=== PATIENT | female | born 1990 | race Caucasian/White ===

== ENCOUNTER → 2016-11-10 | Outpatient (CLI) | payer OTHER ==
[~2016-11-10] MED LIST: FERR-31 PO; NITR-58 PO; PREN1TAB62 PO
== END | disposition home or self-care (01) ==
LOC: EEG 09:26
PROVIDERS: ATTEND Family Medicine Adult Medicine
DX: G40.909 Epilepsy, unspecified, not intractable, without status epilepticus (principal)
CPT/HCPCS: 95819

== ENCOUNTER 2016-12-19 08:22 | Emergency (ER) | payer OTHER ==
[~2016-12-19] VITALS: Ht 167.6 cm; Wt 78.6 kg
[~2016-12-19 08:22] MED LIST changes: +FOLI-49 PO; +PREN-39 PO
[2016-12-19 08:25] VITALS: Ht 167.6 cm; Wt 78.6 kg
[2016-12-19] MEDS ORDERED: SOD CHLORIDE 0.9% 1,000 ML IV STA (09:02)
[2016-12-19] MEDS ORDERED: KETOROLAC 30 MG INJ IV STA (09:02)
[2016-12-19 09:49] LABS: ADD SCAN DIFF NO
[2016-12-19 09:53] LABS: BASOPHILS % 0.2 % (0.0-2.0); EOSINOPHILS # 0.1 10^3/ul (0.0-0.5); EOSINOPHILS % 2.8 % (0.0-7.0); HEMOGLOBIN 12.5 g/dl (12.0-16.0); LYMPHOCYTES # 1.1 10^3/ul (0.8-2.9); LYMPHOCYTES % 21.3 % (15.0-51.0); MEAN CORPUSCULAR HEMOGLOBIN 30.5 pg (29.0-33.0); MEAN CORPUSCULAR HGB CONC 32.9 g/dl (32.0-37.0); MEAN CORPUSCULAR VOLUME 92.7 fl (82.0-101.0); MEAN PLATELET VOLUME 11.8 fl (7.4-10.4); MONOCYTE # 0.5 10^3/ul (0.3-0.9); MONOCYTES % 9.9 % (0.0-11.0); NEUTROPHIL # 3.2 10^3/ul (1.6-7.5); NEUTROPHILS % 65.4 % (39.0-77.0); PLATELET COUNT 267 10^3/UL (140-415); RED CELL DISTRIBUTION WIDTH 12.2 % (11.5-14.5); WHITE BLOOD COUNT 4.9 10^3/ul (4.8-10.8)
[2016-12-19 09:55] LABS: ADD UMIC YES; UR BILIRUBIN (Dip) NEGATIVE (NEGATIVE); UR BLOOD (Dip) 2+ (NEGATIVE); UR CLARITY CLEAR (CLEAR); UR COLOR LT. YELLOW (YELLOW); UR GLUCOSE (Dip) NEGATIVE (NEGATIVE); UR KETONES (Dip) NEGATIVE (NEGATIVE); UR LEUKOCYTE ESTERASE (Dip) TRACE (NEGATIVE); UR NITRITE (Dip) NEGATIVE (NEGATIVE); UR TOTAL PROTEIN (Dip) NEGATIVE (NEGATIVE); UR UROBILINOGEN (Dip) 0.2 E.U./dL (0.1-1.0)
[2016-12-19 10:04] LABS: INR 1.06; PROTIME 13.8 Sec (12.2-14.2); PT RATIO 1.1
[2016-12-19 10:05] LABS: PARTIAL THROMBOPLASTIN TIME 29.5 Sec (25.0-35.0)
[2016-12-19 10:12] LABS: ALBUMIN 4.3 g/dl (3.3-4.9); ALBUMIN/GLOBULIN RATIO 1.3; BILIRUBIN,INDIRECT 0.1 mg/dl (0-1.1); BILIRUBIN,TOTAL 0.1 mg/dl (0.2-1.3); CALCIUM 8.9 mg/dl (8.4-10.2); CREATININE 0.7 mg/dl (0.44-1.00); TOTAL PROTEIN 7.6 g/dl (6.1-8.1)
--- NOTE | 2016-12-19 10:15 | RADRPT ---
PROCEDURE: US Abdomen. CLINICAL INDICATION: abdominal pain TECHNIQUE: Multiple real-time images were acquired of the patient's right upper quadrant abdomen a nd retroperitoneum utilizing a high resolution transducer. COMPARISON: None FINDINGS: The liver demonstrates normal echogenicity. The liver is normal in size and no focal solid lesions are seen. The liver measures 13.7 cm in length. The portal vein is patent with normal direction of f low. No intrahepatic biliary dilatation is seen. No gallstones are identified within the gallbladder. There is no pericholecystic fluid or gallbladd er wall thickening. The common bile duct measures 5 mm in maximal dimension. The visualized portions of the pancreas are unremarkable. The tail of the pancreas is not seen. No free fluid is identified. The right kidney is normal in size, and demonstrate normal echogenicity and cortical thickness. The right kidney measures 9.7 cm in long dimension. There is no evidence of hydronephrosis. There are no kidney stones. RPTAT: AA IMPRESSION: Unremarkable right upper quadrant abdominal ultrasound. .Néstor Carrasquillo MD, Date Time Electronically viewed and signed by .Néstor Carrasquillo MD, MD on 12/19/2016 10:14 .S/
[2016-12-19 10:21] LABS: UR BACTERIA FEW; UR SQUAMOUS EPITHELIAL CELL FEW
[2016-12-19 11:23] VITALS: BP 111/65; PULSE 76; RESP 18; TEMP 97.9
--- NOTE | 2016-12-19 13:08 | ERD ---
ER Documentation Chief Complaint Date/Time DATE: 12/19/16 TIME: 13:04 Chief Complaint AP WITH DIARRHEA X 2 DAYS HPI This patient is a 26-year-old female with no significant medical history presenting to the emergency department for diffuse abdominal pain with diarrhea ongoing for the past 3 days. The patient states she had 4 episodes of diarrhea in the past 8 hours. There is no blood or mucus in the diarrhea. Additionally the patient reports mild burning while urinating. The patient has been eating and drinking okay with no anorexia. Patient denies fevers, chills, nausea, vomiting, or other symptoms. ROS All systems reviewed and are negative except as per history of present illness. Medications Home Meds Active Scripts Nitrofurantoin Monohyd Macrocr* (Macrobid*) 100 Mg Capsr, 100 MG PO BID for 7 Days, CAP Prov:MARLO ABREU PA-C 06/30/16 Reported Medications Ferrous Sulfate (Iron Supplement) 1 Tab Tablet, 1 TAB PO DAILY 05/20/14 Vit-Iron Fumarate-FA ( Vitamin Tablet) 1 Each Tablet, 1 TAB PO DAILY, TAB 05/20/14 Allergies Allergies: Coded Allergies: Sulfa (Sulfonamide Antibiotics) (Verified Allergy, Unknown, HIVES, 12/19/16 ) PMhx/Soc Medical and Surgical Hx: pt denies Medical Hx, pt denies Surgical Hx History of Surgery: No Anesthesia Reaction: No Hx Neurological Disorder: No Hx Respiratory Disorders: No Hx Cardiac Disorders: No Hx Psychiatric Problems: No Hx Miscellaneous Medical Probl: Yes (HERNIA) Hx Alcohol Use: No Hx Substance Use: No Hx Tobacco Use: No Smoking Status: Never smoker FmHx Noncontributory for chief complaint Physical Exam Vitals Vital Signs Date Time Temp Pulse Resp B/P Pulse Ox O2 Delivery O2 Flow Rate FiO2 12/19/16 11:23 97.9 76 18 111/65 100 Room Air 12/19/16 08:25 97.8 90 18 120/65 99 Physical Exam Const: The patient is resting comfortably in no acute distress. Head: Atraumatic Eyes: Normal Conjunctiva ENT: Normal External Ears, Nose and Mouth. Neck: Full range of motion..~ No meningismus. Resp: Clear to auscultation bilaterally Cardio: Regular rate and rhythm, no murmurs Abd: Soft, there is some mild tenderness to palpation of the right upper quadrant without rebound tenderness or guarding, non distended. Normal bowel sounds. No McBurney's point tenderness. Skin: No petechiae or rashes Back: No midline or flank tenderness Ext: No cyanosis, or edema Neur: Awake and alert Psych: Normal Mood and Affect Result Diagram: 12/19/1692912/19/16929 Results 24 hrs Laboratory Tests Test 12/19/16 09:25 12/19/16 09:30 Urine Color LT. YELLOW Urine Clarity CLEAR Urine pH 5.5 Urine Specific [place] >=1.030 Urine Ketones NEGATIVE Urine Nitrite NEGATIVE Urine Bilirubin NEGATIVE Urine Urobilinogen 0.2 E.U./dL Urine Leukocyte Esterase TRACE Urine Microscopic RBC 2-5/HPF Urine Microscopic WBC 0-2/HPF Urine Squamous Epithelial Cells FEW Urine Bacteria FEW Urine Hemoglobin 2+ Urine Glucose NEGATIVE% Urine Total Protein NEGATIVE White Blood Count 4.910^3/ul Red Blood Count 4.1010^6/ul Hemoglobin 12.5g/dl Hematocrit 38.0% Mean Corpuscular Volume 92.7fl Mean Corpuscular Hemoglobin 30.5pg Mean Corpuscular Hemoglobin Concent 32.9g/dl Red Cell Distribution Width 12.2% Platelet Count 94981^3/UL Mean Platelet Volume 11.8fl Neutrophils % 65.4% Lymphocytes % 21.3% Monocytes % 9.9% Eosinophils % 2.8% Basophils % 0.2% Nucleated Red Blood Cells % 0.0/100WBC Neutrophils # 3.210^3/ul Lymphocytes # 1.110^3/ul Monocytes # 0.510^3/ul Eosinophils # 0.110^3/ul Basophils # 0.010^3/ul Nucleated Red Blood Cells # 0.010^3/ul Prothrombin Time 13.8Sec Prothrombin Time Ratio 1.1 INR International Normalized Ratio 1.06 Activated Partial Thromboplast Time 29.5Sec Sodium Level 141mmol/L Potassium Level 4.0mmol/L Chloride Level 105mmol/L Carbon Dioxide Level 26mmol/L Anion Gap 14 Blood Urea Nitrogen 12mg/dl Creatinine 0.70mg/dl Glucose Level 89mg/dl Calcium Level 8.9mg/dl Total Bilirubin 0.1mg/dl Direct Bilirubin 0.00mg/dl Indirect Bilirubin 0.1mg/dl Aspartate Amino Transf (AST/SGOT) 26IU/L Alanine Aminotransferase (ALT/SGPT) 35IU/L Alkaline Phosphatase 69IU/L Total Protein 7.6g/dl Albumin 4.3g/dl Globulin 3.30g/dl Albumin/Globulin Ratio 1.30 Lipase 67U/L Current Medications Medications (Trade) Dose Ordered Sig/Tatiana Route PRN Reason Start Time Stop Time Status Last Admin Dose Admin Sodium Chloride (NS) 1,000 ml @ 1,000 mls/hr Q1H STAT IV 12/19/16 09:02 12/19/16 10:01 DC 12/19/16 09:33 Ketorolac Tromethamine (Toradol) 30 mg ONCE STAT IV 12/19/16 09:02 12/19/16 09:04 DC 12/19/16 09:33 Procedures/MDM EMERGENCY DEPARTMENT COURSE / MEDICAL DECISION MAKING: This is a 26-year-old female who comes to the emergency room secondary to complaints of diffuse abdominal pain with diarrhea. The patient was given IV Toradol in the department. On re-evaluation, the patient was feeling improved. Lab results reviewed and showed no significant acute abnormalities. Radiology: PROCEDURE: US Abdomen. CLINICAL INDICATION: abdominal pain TECHNIQUE: Multiple real-time images were acquired of the patient's right upper quadrant abdomen and retroperitoneum utilizing a high resolution transducer. COMPARISON: None FINDINGS: The liver demonstrates normal echogenicity. The liver is normal in size and no focal solid lesions are seen. The liver measures 13.7 cm in length. The portal vein is patent with normal direction of flow. No intrahepatic biliary dilatation is seen. No gallstones are identified within the gallbladder. There is no pericholecystic fluid or gallbladder wall thickening. The common bile duct measures 5 mm in maximal dimension. The visualized portions of the pancreas are unremarkable. The tail of the pancreas is not seen. No free fluid is identified. The right kidney is normal in size, and demonstrate normal echogenicity and cortical thickness. The right kidney measures 9.7 cm in long dimension. There is no evidence of hydronephrosis. There are no kidney stones. RPTAT: AA IMPRESSION: Unremarkable right upper quadrant abdominal ultrasound. .Néstor Carrasquillo MD, MD Date Time Electronically viewed and signed by .Néstor Carrasquillo MD, MD on 12/19/2016 10: 14 .S/ CC: YAQUELIN GENAO PA-C The primary diagnosis is abdominal pain of unclear etiology. Secondary diagnosis is diarrhea I have low suspicion for appendicitis, cholecystitis, bowel obstruction, peritoneal abscess, septicemia, or other emergent conditions at this time. Discharge: I have discussed the lab results and diagnostic findings with the patient and answered any questions or concerns. The patient was advised to followup with their PMD in 1-2 days and to return to the Emergency Department if there are any new or worsening symptoms. The patient understood and agreed with the diagnosis, treatment and plan. The patient is stable for discharge at this time. Departure Diagnosis: Primary Impression: Abdominal pain Additional Impression: Diarrhea Condition: Fair Patient Instructions: Abdominal Pain, Treating Diarrhea Referrals: [facility] YOU HAVE RECEIVED A MEDICAL SCREENING EXAM AND THE RESULTS INDICATE THAT YOU DO NOT HAVE A CONDITION THAT REQUIRES URGENT TREATMENT IN THE EMERGENCY DEPARTMENT. FURTHER EVALUATION AND TREATMENT OF YOUR CONDITION CAN WAIT UNTIL YOU ARE SEEN IN YOUR DOCTORS OFFICE WITHIN THE NEXT 1-2 DAYS. IT IS YOUR RESPONSIBILITY TO MAKE AN APPOINTMENT FOR FOLOW-UP CARE. IF YOU HAVE A PRIMARY DOCTOR --you should call your primary doctor and schedule an appointment IF YOU DO NOT HAVE A PRIMARY DOCTOR YOU CAN CALL OUR PHYSICIAN REFERRAL HOTLINE AT IF YOU CAN NOT AFFORD TO SEE A PHYSICIAN YOU CAN CHOSE FROM THE FOLLOWING [facility] [address] [facility] [address] [facility] [address] [facility]. [facility] [address] [facility]. [facility] [address] [facility]. [facility]. [address] Additional Instructions: Please utilize the brat diet. Follow-up with your primary care physician within 1 week. Return to the emergency department immediately should you have any new or worsening symptoms, uncontrolled fevers, or other unexplained symptoms. Take all medications as directed. YAQUELIN GENAO PA-C Dec 19, 2016 13:08
== END 2016-12-19 11:25 | disposition home or self-care (01) ==
LOC: FTE 08:22
DX: R10.11 Right upper quadrant pain (principal); R19.7 Diarrhea, unspecified
CPT/HCPCS: 76705; 80053; 81001; 83690; 85025; 85610; 85730; J1885; J7030; 36415; 81003; 96361; 96374

== ENCOUNTER 2017-05-26 02:09 | Inpatient (IN) | payer OTHER ==
[~2017-05-26] VITALS: Ht 167.6 cm; Wt 90.1 kg
[~2017-05-26 02:09] MED LIST changes: -FOLI-49 PO; -PREN-39 PO
--- NOTE | 2017-05-26 02:24 | ERA ---
ER Documentation Chief Complaint Date/Time DATE: 05/26/17 TIME: 02:24 Chief Complaint c/o abd pain HPI The patient is a 26-year-old female, presenting with diffuse abdominal pain that began about 12:30 AM. She denies fever, chills, neck pain, chest pain, dyspnea, nausea, vomiting, dysuria, diarrhea. She does not smoke or drink Past medical history: Cardiac valvular problem, details unclear Past surgical history: None ROS All systems reviewed and are negative except as per history of present illness. Medications Home Meds Reported Medications Aspirin* (Aspirin* EC) 81 Mg Tablet.dr, 81 MG PO DAILY, TAB 05/26/17 Nitroglycerin* (Nitrostat*) 0.4 Mg Tab.subl, 0.4 MG SL Q5MIN Y for CHEST PAIN, BOTTLE 05/26/17 Discontinued Reported Medications Ferrous Sulfate (Iron Supplement) 1 Tab Tablet, 1 TAB PO DAILY 05/20/14 Vit-Iron Fumarate-FA ( Vitamin Tablet) 1 Each Tablet, 1 TAB PO DAILY, TAB 05/20/14 Discontinued Scripts Nitrofurantoin Monohyd Macrocr* (Macrobid*) 100 Mg Capsr, 100 MG PO BID for 7 Days, CAP Prov:MARLO ABREU PA-C 06/30/16 Allergies Allergies: Coded Allergies: Sulfa (Sulfonamide Antibiotics) (Unverified Allergy, Unknown, HIVES, ) PMhx/Soc History of Surgery: No Anesthesia Reaction: No Hx Neurological Disorder: No Hx Respiratory Disorders: No Hx Cardiac Disorders: No Hx Psychiatric Problems: No Hx Miscellaneous Medical Probl: Yes (HERNIA) Hx Alcohol Use: No Hx Substance Use: No Hx Tobacco Use: No Physical Exam Vitals Vital Signs Date Time Temp Pulse Resp B/P Pulse Ox O2 Delivery O2 Flow Rate FiO2 05/26/17 02:51 91 18 120/75 98 Room Air 05/26/17 02:15 98.6 98 18 120/70 98 Physical Exam Const: No acute distress. Head: Atraumatic. Eyes: Normal Conjunctiva. ENT: Normal External Ears, Nose and Mouth. Neck: Full range of motion. No meningismus. Resp: Clear to auscultation bilaterally. Cardio: Regular rate and rhythm. Abd: Soft, non distended, normal bowel sounds, Diffuse and vague abdominal tenderness, no rigidity, rebound, CVA tenderness Skin: No petechiae or rashes. Back: No midline or flank tenderness. Ext: No cyanosis, or edema. Neur: Awake and alert. No focal deficit Psych: Normal Mood and Affect. Result Diagram: 05/26/17 0243 05/26/17 0243 Results 24 hrs Laboratory Tests Test 05/26/17 02:43 05/26/17 02:54 White Blood Count 19.010^3/ul Red Blood Count 4.3710^6/ul Hemoglobin 13.5g/dl Hematocrit 40.4% Mean Corpuscular Volume 92.4fl Mean Corpuscular Hemoglobin 30.9pg Mean Corpuscular Hemoglobin Concent 33.4g/dl Red Cell Distribution Width 12.0% Platelet Count 73176^3/UL Mean Platelet Volume 11.7fl Neutrophils % 78.9% Lymphocytes % 15.3% Monocytes % 4.5% Eosinophils % 0.8% Basophils % 0.2% Nucleated Red Blood Cells % 0.0/100WBC Neutrophils # 15.010^3/ul Lymphocytes # 2.910^3/ul Monocytes # 0.910^3/ul Eosinophils # 0.210^3/ul Basophils # 0.010^3/ul Nucleated Red Blood Cells # 0.010^3/ul Sodium Level 143mmol/L Potassium Level 3.9mmol/L Chloride Level 106mmol/L Carbon Dioxide Level 25mmol/L Anion Gap 16 Blood Urea Nitrogen 14mg/dl Creatinine 0.92mg/dl Glucose Level 103mg/dl Calcium Level 9.6mg/dl Total Bilirubin 0.1mg/dl Direct Bilirubin 0.00mg/dl Indirect Bilirubin 0.1mg/dl Aspartate Amino Transf (AST/SGOT) 19IU/L Alanine Aminotransferase (ALT/SGPT) 29IU/L Alkaline Phosphatase 85IU/L Total Protein 8.2g/dl Albumin 4.7g/dl Globulin 3.50g/dl Albumin/Globulin Ratio 1.34 Lipase 108U/L Bedside Urine pH (LAB) 6.0 Bedside Urine Protein (LAB) Negative Bedside Urine Glucose (UA) Negative Bedside Urine Ketones (LAB) Negative Bedside Urine Blood Trace-lysed Bedside Urine Nitrite (LAB) Negative Bedside Urine Leukocyte Esterase (L 3+ Current Medications Medications (Trade) Dose Ordered Sig/Tatiana Route PRN Reason Start Time Stop Time Status Last Admin Dose Admin Sodium Chloride (NS) 1,000 ml @ 1,000 mls/hr Q1H STAT IV 05/26/17 02:28 05/26/17 03:27 DC 05/26/17 02:52 Morphine Sulfate (morphine) 2 mg ONCE STAT IV 05/26/17 02:28 05/26/17 02:30 DC 05/26/17 02:52 Ondansetron HCl (Zofran Inj) 4 mg ONCE STAT IV 05/26/17 02:28 05/26/17 02:30 DC 05/26/17 02:52 Procedures/[place] [address] Radiology Main Line: [phone] DIAGNOSTIC IMAGING REPORT Patient: TITO NEW : 1990 Age: 26 Sex: F MR #: [id number] DOS: 05/26/17 0228 Ordering MD: CARMEN ALEMAN MD Location: E/R Room/Bed: PROCEDURE: CT Abdomen and pelvis without contrast. CLINICAL INDICATION: Abdominal pain. TECHNIQUE: CT scan of the abdomen and pelvis was performed on a multi- detector high-resolution CT scanner. Contiguous axial images were obtained from the lung bases to the ischial tuberosities without intravenous contrast. Coronal and sagittal reformatted images were also obtained. Images were reviewed on the PACS workstation. One or more of the following dose reduction techniques were used: - Automated exposure control. - Adjustment of the mA and/or kV according to patient size. - Use of iterative reconstruction technique. Exam CTD/vol = 15.86 mGy. Total exam DLP = 1020.91 mGy-cm. COMPARISON: None. FINDINGS: Evaluation of the lung bases demonstrates minimal right basilar atelectasis. Abdomen: The liver is normal in size. There is no focal mass or dilatation of the biliary tree. The gallbladder is not distended. The spleen, pancreas and bilateral adrenal glands are within normal limits. Bilateral kidneys are normal in size with no contour deforming mass identified. There is no radiopaque renal or ureteral calculus identified. There is no hydronephrosis or hydroureter. There is no retroperitoneal adenopathy. The abdominal aorta is of normal caliber. There is a small umbilical hernia containing fat. There is moderate retained stool within the colon. There is no bowel obstruction or free air. There is a mildly distended appendix extending inferior to the cecum measuring up to 8 mm in diameter. There is no diverticulosis or diverticulitis. There is no ascites. Pelvis: The bladder is unremarkable. The uterus and adnexa are within normal limits. There is mild to moderate pelvic free fluid. There is no significant pelvic adenopathy. Evaluation of the osseous structures demonstrates no suspicious lytic or blastic lesion. IMPRESSION: Mild to moderate pelvic free fluid suspicious for ruptured cyst. Further evaluation can be made by pelvic ultrasound. Mildly distended appendix measuring 8 mm. Clinical correlation and follow-up is recommended to exclude appendicitis. Moderate retained stool within the colon. Small umbilical hernia containing fat. A call report was made to Dr. Aleman at 03:18 a.m. .Raúl Sood MD, MD Date Time Electronically viewed and signed by .Raúl Sood MD, MD on 05/26/2017 03:19 .T/ CC: CARMEN ALEMAN MD [place] [address] Radiology Main Line: [phone] DIAGNOSTIC IMAGING REPORT Patient: TITO NEW : 1990 Age: 26 Sex: F MR #: [id number] DOS: 05/26/17 0329 Ordering MD: CARMEN ALEMAN MD Location: E/R Room/Bed: PROCEDURE: Pelvic ultrasound. CLINICAL INDICATION: Pelvic pain. TECHNIQUE: Multiple sonographic images of the pelvis were obtained utilizing a transabdominal and endovaginal technique. The images were reviewed on a PACS workstation. COMPARISON: None. FINDINGS: The uterus is visualized and measures 8.6 x 3.2 x 5.0 cm. No abnormal uterine mass is identified. The endometrial echo complex is homogeneous and measures 9.9 mm. There is moderate pelvic free fluid. The right ovary has a normal echotexture and measures 4.0 x 2.7 x 2.9 cm. The left ovary has a normal echotexture and measures 2.9 x 1.7 x 2.3 cm. There is normal flow to both ovaries. No adnexal masses are identified. IMPRESSION: Moderate pelvic free fluid. .Raúl Sood MD, MD Date Time Electronically viewed and signed by .Raúl Sood MD, MD on 05/26/2017 04:28 .T/ CC: CARMEN ALEMAN MD MEDICAL MAKING DECISION: The patient is a 26-year-old female, presenting with acute abdominal pain, most likely due to acute cystitis, , moderate pelvic free fluid of unclear etiology. She was treated with 1 L normal saline for clinical dehydration, morphine 2 mg IV, Toradol 30 mg IV 1 for pain and Zofran 4 mg IV 1 for nausea and Rocephin 1 g IV for acute cystitis with good response. The differential diagnoses considered include but are not limited to cholelithiasis, cholecystitis, cystitis, pancreatitis, hepatitis, gastritis, peptic ulcer disease, gastric ulcer, appendicitis, diverticulitis, cholangitis, choledocholithiasis, partial small bowel obstruction. Departure Diagnosis: Primary Impression: Abdominal pain Additional Impression: UTI (urinary tract infection) Condition: Stable Comments I discussed the findings with the patient. I discussed the patient with the on- call hospitalist Dr. Cooper at 4:45 AM who was made aware of the lab, the treatment, the patient condition. The patient is admitted to [facility] CARMEN ALEMAN MD May 26, 2017 02:24
[2017-05-26] MEDS ORDERED: ONDANSETRON 4 MG INJ IV STA (02:28)
[2017-05-26] MEDS ORDERED: morphine 2 MG INJ IV STA (02:28)
[2017-05-26] MEDS ORDERED: SOD CHLORIDE 0.9% 1,000 ML IV STA (02:28)
[2017-05-26 02:47] LABS: URINE BLOOD (Dip) POC Trace-lysed (NEGATIVE)
[2017-05-26 03:01] LABS: BASOPHILS % 0.2 % (0.0-2.0); EOSINOPHILS # 0.2 10^3/ul (0.0-0.5); EOSINOPHILS % 0.8 % (0.0-7.0); HEMATOCRIT 40.4 % (37.0-47.0); HEMOGLOBIN 13.5 g/dl (12.0-16.0); LYMPHOCYTES # 2.9 10^3/ul (0.8-2.9); LYMPHOCYTES % 15.3 % (15.0-51.0); MEAN CORPUSCULAR HEMOGLOBIN 30.9 pg (29.0-33.0); MEAN CORPUSCULAR HGB CONC 33.4 g/dl (32.0-37.0); MEAN CORPUSCULAR VOLUME 92.4 fl (82.0-101.0); MEAN PLATELET VOLUME 11.7 fl (7.4-10.4); MONOCYTE # 0.9 10^3/ul (0.3-0.9); MONOCYTES % 4.5 % (0.0-11.0); NEUTROPHILS % 78.9 % (39.0-77.0); PLATELET COUNT 296 10^3/UL (140-415); RED BLOOD COUNT 4.37 10^6/ul (4.20-5.40)
--- NOTE | 2017-05-26 03:20 | RADRPT ---
PROCEDURE: CT Abdomen and pelvis without contrast. CLINICAL INDICATION: Abdominal pain. TECHNIQUE: CT scan of the abdomen and pelvis was performed on a multi-detector high-resolution CT scanner. Contiguous axial images were obtained from the lung bases to the ischial tuberosities wit hout intravenous contrast. Coronal and sagittal reformatted images were also obtained. Images were reviewed on the PACS workstation. One or more of the following dose reduction techniques were used: - Automated exposure control. - Adjustment of the mA and/or kV according to patient size. - Use of iterative reconstruction technique. Exam CTD/vol = 15.86 mGy. Total exam DLP = 1020.91 mGy-cm. COMPARISON: None. FINDINGS: Evaluation of the lung bases demonstrates minimal right basilar atelectasis. Abdomen: The liver is normal in size. There is no focal mass or dilatation of the biliary tree. T he gallbladder is not distended. The spleen, pancreas and bilateral adrenal glands are within romelia l limits. Bilateral kidneys are normal in size with no contour deforming mass identified. There is no radiopaque renal or ureteral calculus identified. There is no hydronephrosis or hydroureter. T here is no retroperitoneal adenopathy. The abdominal aorta is of normal caliber. There is a small umbilical hernia containing fat. There is moderate retained stool within the colon . There is no bowel obstruction or free air. There is a mildly distended appendix extending inferio r to the cecum measuring up to 8 mm in diameter. There is no diverticulosis or diverticulitis. The re is no ascites. Pelvis: The bladder is unremarkable. The uterus and adnexa are within normal limits. There is mil d to moderate pelvic free fluid. There is no significant pelvic adenopathy. Evaluation of the osseous structures demonstrates no suspicious lytic or blastic lesion. IMPRESSION: Mild to moderate pelvic free fluid suspicious for ruptured cyst. Further evaluation can be made by [facility] ultrasound. Mildly distended appendix measuring 8 mm. Clinical correlation and follow-up is recommended to exclu de appendicitis. Moderate retained stool within the colon. Small umbilical hernia containing fat. A call report was made to Dr. Felipe at 03:18 a.m. .Raúl Sood MD, Date Time Electronically viewed and signed by .Raúl Sood MD, MD on 05/26/2017 03:19 .T/
[2017-05-26] MEDS ORDERED: ASPI-664 PO (03:35)
[2017-05-26] MEDS ORDERED: NIT4 SL (03:35)
[2017-05-26 03:59] LABS: ALBUMIN 4.7 g/dl (3.3-4.9); ALBUMIN/GLOBULIN RATIO 1.34; BILIRUBIN,INDIRECT 0.1 mg/dl (0-1.1); BILIRUBIN,TOTAL 0.1 mg/dl (0.2-1.3); CALCIUM 9.6 mg/dl (8.4-10.2); CREATININE 0.92 mg/dl (0.44-1.00); POTASSIUM 3.9 mmol/L (3.5-5.1); TOTAL PROTEIN 8.2 g/dl (6.1-8.1)
--- NOTE | 2017-05-26 04:29 | RADRPT ---
PROCEDURE: Pelvic ultrasound. CLINICAL INDICATION: Pelvic pain. TECHNIQUE: Multiple sonographic images of the pelvis were obtained utilizing a transabdominal and endovaginal technique. The images were reviewed on a PACS workstation. COMPARISON: None. FINDINGS: The uterus is visualized and measures 8.6 x 3.2 x 5.0 cm. No abnormal uterine mass is identified. T he endometrial echo complex is homogeneous and measures 9.9 mm. There is moderate pelvic free fluid. The right ovary has a normal echotexture and measures 4.0 x 2. 7 x 2.9 cm. The left ovary has a normal echotexture and measures 2.9 x 1.7 x 2.3 cm. There is norm al flow to both ovaries. No adnexal masses are identified. IMPRESSION: Moderate pelvic free fluid. .Raúl Sood MD, MD Date Time Electronically viewed and signed by .Raúl Sood MD, MD on 05/26/2017 04:28 .T/
[2017-05-26] MEDS ORDERED: KETOROLAC 30 MG INJ IV ONE (04:51)
[2017-05-26] MEDS ORDERED: CEFTRIAXONE 1 GM/50 ML (PMX) 50 ML IVPB ONE (05:00)
[2017-05-26] MEDS: SOD CHLORIDE 0.9% 1,000 ML IV SCH ×2 (06:19→20:55)
[2017-05-26] MEDS ORDERED: NACL 0.9% 3 ML SYG IV SCH (06:30)
[2017-05-26] MEDS ORDERED: DOCUSATE SODIUM 100 MG CAP PO PRN (06:30)
[2017-05-26] MEDS ORDERED: KETOROLAC 30 MG INJ IV PRN (06:30)
[2017-05-26] MEDS ORDERED: ONDANSETRON 4 MG INJ IV PRN (06:30)
[2017-05-26] MEDS ORDERED: BISACODYL 10 MG SUPP PR PRN (06:30)
[2017-05-26] MEDS: PIPER-TAZO 3.375 GM IV (PMX) 100 ML IVPB SCH ×4 (06:30→23:56)
[2017-05-26] MEDS ORDERED: ACETAMINOPHEN 325 MG TAB PO PRN (06:30)
--- NOTE | 2017-05-26 07:23 | HP ---
Date/Time of Note Date/Time of Note DATE: 05/26/17 TIME: 07:13 Assessment/Plan VTE Prophylaxis VTE Prophylaxis Intervention: SCD's Assessment/Plan Chief Complaint/Hosp Course This is a 26 year female being [facility] for: #1 abdominal pain: Appendicitis versus UTI versus pelvic etiology versus constipation: CAT scan showed Mild to moderate pelvic free fluid suspicious for ruptured cyst. Mildly distended appendix measuring 8 mm. Clinical correlation and follow-up is recommended to exclude appendicitis. Moderate retained stool within the colon. Small umbilical hernia containing fat. Ultrasound of the pelvis showed free fluid however did not show any signs of any ovarian rupture. At the current time patient's pain is not very consistent with just an underlying urinary tract infection. I will start her on Zosyn she did receive ceftriaxone already in the ED. I will keep her n.p.o. Will consult surgery to evaluate the patient as well. Toradol IV for pain control #2 prediabetes: We will check a hemoglobin A1c, will check a lipid panel #3 abnormal heart valve: Was not able to appreciate any overt murmurs on auscultation. Patient follows up with consumer insights specialist diana, she she can follow- up as an outpatient. #4 DVT GI prophylaxis: SCDs, acid nicol Further treatment strategy will be implemented as per the clinical course Problems: HPI/ROS Admit Date/Time Admit Date/Time Hx of Present Illness Chief complaint: Abdominal pain This is a 26 year female who comes in complaining of abdominal pain that started approximately at 12 AM. Patient states that she was sleeping and all of a sudden she experienced a sharp pain in her lower abdomen which awoke her up from her sleep. She states that she was in the position writhing in pain. Had some nausea. Denies any fevers or vomiting. Denies any diarrhea. She states that she is experiencing urinary tract infections before but they have not felt like this. She states that her last period was approximately 2-3 weeks ago and she is due for it sometime soon. Denies any vaginal bleeding or hematuria. Denies any problems with defecation. Allergies: Sulfa Medications: See ISABEL ROS Const: As per HPI Eyes : No pain discharge or redness or change in visual acuity ENT: No pain, sore throat, congestion, congestion, dysphagia or discharge Respiratory: No shortness of breath, cough, sputum, wheezing, or pleuritic pain Cardiovascular: No chest pain, palpitation, PND, or edema GI : As per HPI Genitourinary: No dysuria, hematuria, flank pain , discharge or CVA tenderness Musculoskeletal: No joint pain, back pain, neck pain, restricted range of motion in neck or joints Skin: No rash, bruising or hives Neuro: No headache, dizziness, syncope, seizure, focal weakness Endocrine: No polyuria, polydipsia, temperature intolerance Psych: No hallucination, depression, anxiety or suicidal ideation PMH/Family/Social Past Medical History Prediabetes, abnormal heart valve unsure which one Past Surgical History Past Surgical Hx: no surgical history Family History Significant Family History: cancer (Cervical cancer) Social History Alcohol Use: none Smoking Status: Never smoker Drug Use: none Exam/Review of Systems Vital Signs Vitals Vital Signs Date Time Temp Pulse Resp B/P Pulse Ox O2 Delivery O2 Flow Rate FiO2 05/26/17 05:02 85 18 116/75 98 Room Air 05/26/17 02:15 98.6 Exam Exam General: Patient is lying in bed in no acute distress, however on exam when abdomen is palpated and she has significant pain HEENT: Atraumatic, normocephalic. The pupils are equal, round and reactive. Extraocular motor are intact Neck: Supple with full range of motion. No rigidity or meningismus Chest: Nontender Lungs: Clear to auscultation bilaterally no crackles rales or wheezing Heart: Normal S1-S2, Regular rhythm and rate. No murmur, S3, or S4 Abdomen: Moderate tenderness to palpation of the right lower quadrant as well as at the umbilical region. Referred pain on the left lower quadrant Extremities: Normal to inspection, no edema no cyanosis Neurologic: Normal mental status, speech normal, cranial nerves II through XII are intact, motor and sensory are intact, no focal weakness Additional Comments PROCEDURE: CT Abdomen and pelvis without contrast. CLINICAL INDICATION: Abdominal pain. TECHNIQUE: CT scan of the abdomen and pelvis was performed on a multi- detector high-resolution CT scanner. Contiguous axial images were obtained from the lung bases to the ischial tuberosities without intravenous contrast. Coronal and sagittal reformatted images were also obtained. Images were reviewed on the PACS workstation. One or more of the following dose reduction techniques were used: - Automated exposure control. - Adjustment of the mA and/or kV according to patient size. - Use of iterative reconstruction technique. Exam CTD/vol = 15.86 mGy. Total exam DLP = 1020.91 mGy-cm. COMPARISON: None. FINDINGS: Evaluation of the lung bases demonstrates minimal right basilar atelectasis. Abdomen: The liver is normal in size. There is no focal mass or dilatation of the biliary tree. The gallbladder is not distended. The spleen, pancreas and bilateral adrenal glands are within normal limits. Bilateral kidneys are normal in size with no contour deforming mass identified. There is no radiopaque renal or ureteral calculus identified. There is no hydronephrosis or hydroureter. There is no retroperitoneal adenopathy. The abdominal aorta is of normal caliber. There is a small umbilical hernia containing fat. There is moderate retained stool within the colon. There is no bowel obstruction or free air. There is a mildly distended appendix extending inferior to the cecum measuring up to 8 mm in diameter. There is no diverticulosis or diverticulitis. There is no ascites. Pelvis: The bladder is unremarkable. The uterus and adnexa are within normal limits. There is mild to moderate pelvic free fluid. There is no significant pelvic adenopathy. Evaluation of the osseous structures demonstrates no suspicious lytic or blastic lesion. IMPRESSION: Mild to moderate pelvic free fluid suspicious for ruptured cyst. Further evaluation can be made by pelvic ultrasound. Mildly distended appendix measuring 8 mm. Clinical correlation and follow-up is recommended to exclude appendicitis. Moderate retained stool within the colon. Small umbilical hernia containing fat. A call report was made to Dr. Aleman at 03:18 a.m. .Raúl Sood MD, MD Date Time Electronically viewed and signed by .Raúl Sood MD, MD on 05/26/2017 03:19 .T/ CC: CARMEN ALEMAN MD PROCEDURE: Pelvic ultrasound. CLINICAL INDICATION: Pelvic pain. TECHNIQUE: Multiple sonographic images of the pelvis were obtained utilizing a transabdominal and endovaginal technique. The images were reviewed on a PACS workstation. COMPARISON: None. FINDINGS: The uterus is visualized and measures 8.6 x 3.2 x 5.0 cm. No abnormal uterine mass is identified. The endometrial echo complex is homogeneous and measures 9.9 mm. There is moderate pelvic free fluid. The right ovary has a normal echotexture and measures 4.0 x 2.7 x 2.9 cm. The left ovary has a normal echotexture and measures 2.9 x 1.7 x 2.3 cm. There is normal flow to both ovaries. No adnexal masses are identified. IMPRESSION: Moderate pelvic free fluid. .Raúl Sood MD, Date Time Electronically viewed and signed by .Raúl Sood MD, on 05/26/2017 04:28 .T/ CC: CARMEN ALEMAN MD Labs Result Diagram: 05/26/17 0243 05/26/17 0243 Medications Medications Current Medications Sodium Chloride (NS) 1,000 ml @ 75 mls/hr [id number] IV ; Start 05/26/17 at 06:19 Ondansetron HCl (Zofran Inj) 4 mg Q6H PRN IV NAUSEA AND/OR VOMITING; Start at 06:30 Acetaminophen (Tylenol Tab) 650 mg Q6H PRN PO PAIN LEVEL 1-3 OR FEVER; Start at 06:30 Docusate Sodium (Colace) 100 mg Q12H PRN PO CONSTIPATION; Start 05/26/17 at 06: 30 Bisacodyl (Dulcolax Supp) 10 mg DAILY PRN [place] CONSTIPATION; Start 05/26/17 at 06 :30 Pantoprazole 40 mg 40 mg DAILY@06 IV ; Start 05/27/17 at 06:00 Piperacillin Sod/ Tazobactam Sod (Zosyn 3.375gm/ 100 ml (Pmx)) 100 ml @ 200 mls /hr Q6 IVPB ; Start 05/26/17 at 06:30 Ketorolac Tromethamine (Toradol) 30 mg Q6H PRN IV PAIN; Start 05/26/17 at 06:30 ; Stop 05/27/17 at 06:29 HAIR KING May 26, 2017 07:23
[2017-05-26] MEDS ORDERED: PANTOPRAZOLE 40 MG INJ ONE (08:28)
[2017-05-26] MEDS: PANTOPRAZOLE 40 MG INJ IV SCH (08:42)
[2017-05-26] MEDS: morphine 2 MG INJ IV PRN ×2 (10:32→15:56)
[2017-05-26] MEDS ORDERED: FLUO40CA10 PO (12:33)
[2017-05-26] MEDS ORDERED: PROP40TA4 PO (12:33)
[2017-05-26 13:57] VITALS: TEMP 97.2
[2017-05-26 15:33] VITALS: BP 102/59; RESP 18
[2017-05-26] MEDS ORDERED: PROP10TA6 PO (16:29)
--- NOTE | 2017-05-26 18:00 | CONS ---
Date/Time of Note Date/Time of Note DATE: 05/26/17 TIME: 17:59 Assessment/Plan Assessment/Plan Additional Assessment/Plan [facility] INPATIENT CONSULTATION NOTE DATE OF SERVICE: 05/26/2017 PLACE OF SERVICE: [facility], sixth floor ASSESSMENT AND PLAN: A very-pleasant 26-year-old lady with comorbidity of BMI 29.2, presenting with a clinical picture that is not clear for acute appendicitis. Her pain description and location is more diffuse and involves mid upper abdomen which could be from ulcer disease or gastritis. She is less tender in the right lower quadrant than other places and she overall does not present as clear the picture for appendicitis. CT scan also suggests equivocal findings for appendicitis at best. Fluid in the pelvis is present and could also be from gynecologic issues. Overall, I do not have enough indication for acute surgical intervention, but I have reserved time in the operating room tomorrow and if the patient does not improve, we can certainly change our stance and operate on her. In the meantime, she can stay in house and be observed carefully with broad-spectrum antimicrobials and observation. Explained above to the patient (no family present during my discussions with the patient) and answered all questions to the best my ability. Patient appeared to understand and agreed with plans. With above assessment, I've recommended the followin. Keep in-house 2. Okay from my standpoint for patient to eat, but n.p.o. after midnight 3. Labs in a.m. 4. Please keep me appraised as to the patient's clinical condition 5. Possible need for gastroenterology consultation if not improved by tomorrow Thank you very much for having me involved in the care of this very pleasant patient and wonderful family. If you have any questions, please feel free to contact me at [phone]. Nature of presenting problem: Moderate severity Please note that, given the multiple number of diagnoses or management options, the moderate amount and/or complexity of data needed to be reviewed, and moderate to high risk of complications and/or morbidity or mortality, this qualifies as moderate complexity type of decision-making. Disclaimers: 1. Inadvertent spelling and grammatical errors are likely due to electronic health record (EHR)/dictation software use and do not reflect on the quality of delivered patient care. 2. The electronic timestamp recorded on this note does not necessarily reflect the actual date and time of the visit. 3. Portions of this note are created through electronic templates and computer algorithms that may bring in information either from the system or from other physicians and providers that are outside of my control and may not be always accurate. In general (but not always) this happens either in the beginning or at the end of the note. My portions of the gathered data are generally dictated in 1 continuous block of text and entered into one field in the EHR. 4. There may be other unanticipated errors in the note that are outside of my control. I can only attest to the portions of the note that I have created. Updated clinical summary: A very-pleasant 26-year-old lady with comorbidity of BMI 29.2, presenting with a clinical picture that is not clear for acute appendicitis. Comorbidities: 1. BMI 29.2 2. Allergy to sulfa 3. Umbilical hernia 4. Mention of abnormal heart valve in the chart, but no further details available CONSULTATION REQUESTED BY: Mickey Cooper MD Dear Dr. Cooper: Thank you very much for the opportunity to participate in the care of this very pleasant lady and I'm certain her wonderful family. HISTORY OF PRESENT ILLNESS: The patient is a very pleasant 26-year-old lady who is otherwise healthy with above-mentioned comorbidities whom we were kindly asked consult regarding management of abdominal pain issues. Patient was admitted through the emergency department after presenting with 1 day history of abdominal pain that woke her up from sleep. This pain was diffuse in the abdomen and was described to me by the patient as mid upper epigastric with radiation to the size. Interestingly, the patient did not mention right lower quadrant pain during her description. There was issues with nausea, but no fevers or vomiting. No change in bowel or bladder habits. No difficulties with gynecologic issues in the past. No similar pain symptoms in the past. No burning or itching on urination. ALLERGIES: Sulfa MEDICATIONS Documented in the electronic records and reviewed by me. Please see the electronic records for details, as well as details for inpatient medications which were also reviewed by me. SOCIAL HISTORY: The patient lives with family.-Tob;-ETOH;-IVDU FAMILY HISTORY: Cervical cancer without further delineation. There are no other significant medical, surgical or oncologic issues in the family as reported by the patient or reflected in the chart. REVIEW OF SYSTEMS: Other than mentioned above, there were no other pertinent positives or pertinent negatives in an otherwise complete 14 point review of systems. PHYSICAL EXAMINATION GENERAL: The patient appears to be a very pleasant lady of descent lying in bed, appearing stated age, and otherwise in no acute distress. BMI: 29.2 VITAL SIGNS: AVSS (please also see auto important data if available as well as the electronic records) HEENT: Normocephalic and atraumatic. Extraocular muscles and hearing are grossly intact bilaterally and symmetrically. Sclerae are nonicteric. Oral cavity is clear; oral mucosa appear to be pink and moist. Dentition: fair. NECK: Supple. There is no lymphadenopathy or JVD. There is no submental, submandibular or supraclavicular lymphadenopathy. CHEST: Rises symmetrically with each breath; patient is breathing comfortably. There are no audible wheezes, rales or rhonchi on the gross exam. HEART: Pulse is regular and palpable on the right wrist. Capillary refill is normal. Carotid pulses are palpable bilaterally and symmetrically in the neck. EXTREMITIES: Lower extremities contain no pitting edema around the ankles bilaterally and symmetrically. ABDOMEN: Abdomen is soft, nontender and nondistended. No evidence of ascites, organomegaly, caput medusae, engorged subcutaneous veins, or other abnormalities. There are no peritoneal signs or guarding. SKIN: Appears to be pink and feels warm to touch. NEUROLOGIC: Awake, alert, and follows commands appropriately. LABORATORY DATA: See below IMAGING: See electronic chart. Please note that I've personally reviewed all pertinent available images and I agree in general with their overall reported findings. Consultation Date/Type/Reason Admit Date/Time Past Surgical History Past Surgical Hx: no surgical history Social History Alcohol Use: none Smoking Status: Never smoker Drug Use: none Exam/Review of Systems Vital Signs Vitals Vital Signs Date Time Temp Pulse Resp B/P Pulse Ox O2 Delivery O2 Flow Rate FiO2 05/26/17 15:33 97.7 73 18 102/59 99 05/26/17 13:57 Room Air Results Result Diagram: 05/26/17 0243 05/26/17242 Results 24 hrs Laboratory Tests Test 05/26/17 02:43 05/26/17 02:54 White Blood Count 19.0 #H Red Blood Count 4.37 Hemoglobin 13.5 Hematocrit 40.4 Mean Corpuscular Volume 92.4 Mean Corpuscular Hemoglobin 30.9 Mean Corpuscular Hemoglobin Concent 33.4 Red Cell Distribution Width 12.0 Platelet Count 296 Mean Platelet Volume 11.7 H Neutrophils % 78.9 H Lymphocytes % 15.3 Monocytes % 4.5 Eosinophils % 0.8 Basophils % 0.2 Nucleated Red Blood Cells % 0.0 Neutrophils # 15.0 H Lymphocytes # 2.9 Monocytes # 0.9 Eosinophils # 0.2 Basophils # 0.0 Nucleated Red Blood Cells # 0.0 Sodium Level 143 Potassium Level 3.9 Chloride Level 106 Carbon Dioxide Level 25 Anion Gap 16 Blood Urea Nitrogen 14 Creatinine 0.92 Glucose Level 103 Calcium Level 9.6 Total Bilirubin 0.1 L Direct Bilirubin 0.00 Indirect Bilirubin 0.1 Aspartate Amino Transf (AST/SGOT) 19 Alanine Aminotransferase (ALT/SGPT) 29 Alkaline Phosphatase 85 Total Protein 8.2 H Albumin 4.7 Globulin 3.50 H Albumin/Globulin Ratio 1.34 Lipase 108 Bedside Urine pH (LAB) 6.0 Bedside Urine Protein (LAB) Negative Bedside Urine Glucose (UA) Negative Bedside Urine Ketones (LAB) Negative Bedside Urine Blood Trace-lysed H Bedside Urine Nitrite (LAB) Negative Bedside Urine Leukocyte Esterase (L 3+ H Medications Medications Current Medications Sodium Chloride (NS) 1,000 ml @ 75 mls/hr [id number] IV Last administered on 05/26 06:19; Admin Dose 75 MLS/HR; Start 05/26/17 at 06:19 Ondansetron HCl (Zofran Inj) 4 mg Q6H PRN IV NAUSEA AND/OR VOMITING Last administered on 05/26/17 10:32; Admin Dose 4 MG; Start 05/26/17 at 06:30 Acetaminophen (Tylenol Tab) 650 mg Q6H PRN PO PAIN LEVEL 1-3 OR FEVER; Start at 06:30 Docusate Sodium (Colace) 100 mg Q12H PRN PO CONSTIPATION; Start 05/26/17 at 06: 30 Bisacodyl (Dulcolax Supp) 10 mg DAILY PRN [place] CONSTIPATION; Start 05/26/17 at 06 :30 Pantoprazole 40 mg 40 mg DAILY@06 IV Last administered on 05/26/17 08:42; Admin Dose 40 MG; Start 05/27/17 at 06:00 Piperacillin Sod/ Tazobactam Sod (Zosyn 3.375gm/ 100 ml (Pmx)) 100 ml @ 200 mls /hr Q6 IVPB Last administered on 05/26/17 12:00; Admin Dose 200 MLS/HR; Start 05/26/17 at 06:30 Ketorolac Tromethamine (Toradol) 30 mg Q6H PRN IV PAIN; Start 05/26/17 at 06:30 ; Stop 05/27/17 at 06:29 Morphine Sulfate (morphine) 2 mg Q4H PRN IV Pain Last administered on 15:56; Admin Dose 2 MG; Start 05/26/17 at 09:30 KYLER PHAM M.D. May 26, 2017 18:00
[2017-05-26 19:40] VITALS: Ht 167.6 cm; Wt 90.1 kg
[2017-05-26] MEDS: PROPRANOLOL 10 MG TAB PO SCH (20:57)
[2017-05-26 21:04] VITALS: BP 108/55; RESP 18
[2017-05-27 01:45] VITALS: BP 99/55; RESP 18
[2017-05-27] MEDS: PANTOPRAZOLE 40 MG INJ IV SCH (05:54)
[2017-05-27] MEDS: PIPER-TAZO 3.375 GM IV (PMX) 100 ML IVPB SCH ×4 (05:54→23:25)
[2017-05-27 06:15] LABS: BASOPHILS % 0.4 % (0.0-2.0); EOSINOPHILS # 0.3 10^3/ul (0.0-0.5); EOSINOPHILS % 3.7 % (0.0-7.0); HEMATOCRIT 35.6 % (37.0-47.0); HEMOGLOBIN 11.2 g/dl (12.0-16.0); LYMPHOCYTES # 2.7 10^3/ul (0.8-2.9); LYMPHOCYTES % 34.1 % (15.0-51.0); MEAN CORPUSCULAR HEMOGLOBIN 29.8 pg (29.0-33.0); MEAN CORPUSCULAR HGB CONC 31.5 g/dl (32.0-37.0); MEAN CORPUSCULAR VOLUME 94.7 fl (82.0-101.0); MEAN PLATELET VOLUME 11.9 fl (7.4-10.4); MONOCYTE # 0.5 10^3/ul (0.3-0.9); MONOCYTES % 6.3 % (0.0-11.0); NEUTROPHIL # 4.4 10^3/ul (1.6-7.5); NEUTROPHILS % 55.4 % (39.0-77.0); PLATELET COUNT 257 10^3/UL (140-415); RED BLOOD COUNT 3.76 10^6/ul (4.20-5.40); RED CELL DISTRIBUTION WIDTH 12.3 % (11.5-14.5); WHITE BLOOD COUNT 7.9 10^3/ul (4.8-10.8)
[2017-05-27 06:45] LABS: ALBUMIN 3.5 g/dl (3.3-4.9); ALBUMIN/GLOBULIN RATIO 1.2; BILIRUBIN,INDIRECT 0.1 mg/dl (0-1.1); BILIRUBIN,TOTAL 0.1 mg/dl (0.2-1.3); CALCIUM 8.2 mg/dl (8.4-10.2); CHOL/HDL RATIO 3.6 RATIO; CREATININE 0.84 mg/dl (0.44-1.00); POTASSIUM 4.4 mmol/L (3.5-5.1); TOTAL PROTEIN 6.4 g/dl (6.1-8.1)
[2017-05-27 08:01] VITALS: BP 111/66; RESP 18
[2017-05-27 08:22] LABS: THYROID STIMULATING HORMONE 2.57 MIU/L (0.465-4.680)
[2017-05-27] MEDS: SOD CHLORIDE 0.9% 1,000 ML IV SCH ×3 (08:34→22:19)
[2017-05-27] MEDS: PROPRANOLOL 10 MG TAB PO SCH ×2 (08:34→20:17)
[2017-05-27] MEDS: FLUOXETINE 20 MG CAP PO SCH (08:34)
--- NOTE | 2017-05-27 09:57 | PN ---
Date/Time of Note Date/Time of Note DATE: 05/27/17 TIME: 09:54 Assessment/Plan VTE Prophylaxis VTE Prophylaxis Intervention: ambulation Lines/Catheters IV C[facility]ter Type [facility]from [facility]): Peripheral IV Assessment/Plan Chief Complaint/Hosp Course 1. Acute abdominal pain. CT scan of the abdomen and pelvis showing mildly distended appendix measuring 8 mm. Pelvic ultrasound showed moderate pelvic free fluid. Urinalysis showing 3+ leukocyte esterase. The patient initially had leukocytosis. Currently it has been resolved. The patient remains on antibiotics. The patient's CT scan also showed moderate retained stool within the colon. The patient will be continued on stool softeners. The patient being followed by general surgery. Patient currently on a diet. 2. Reported abnormal heart valve. The patient follows up with Dr. Pearce as outpatient. The patient will be continued on propranolol. 3. Fluids, electrolytes, and nutrition. Currently on a regular diet. 4. DVT prophylaxis. Ambulation. 5. Plan. Continue in house monitoring. Continue surgery recommendations. Case discussed with Dr. Avendaño. Problems: Subjective 24 Hr Interval Summary Free Text/Dictation Patient remains afebrile. Tolerating oral intake. Still continues to have episodes of pain, however, better than the previous day. Exam/Review of Systems Vital Signs Vitals Vital Signs Date Time Temp Pulse Resp B/P Pulse Ox O2 Delivery O2 Flow Rate FiO2 05/27/17 08:01 97.5 69 18 111/66 97 05/26/17 13:57 Room Air Intake and Output 05/26/17 05/26/17 05/27/17 15:00 23:00 07:00 Intake Total 100 ml 1100 ml 650 ml Balance 100 ml 1100 ml 650 ml Exam General: Adequately build 26 year-old female lying in bed in no apparent distress. HEENT: Normocephalic, atraumatic. Eyes: Anicteric sclerae, conjunctivae clear. ENT: Nasal septum midline, oral mucosa moist. Neck supple, no JVD noticed. Respiratory: Bilaterally clear breath sounds. No use of accessory muscles of respiration. No adventitious breath sounds. Cardiovascular: S1, S2 heard. No murmurs or gallops. Abdomen: Soft and nondistended. Bowel sounds positive in all 4 quadrants. Umbilical hernia that is reducible. Genitourinary: Deferred. Extremities: No cyanosis, no clubbing, no edema. Peripheral pulses palpable. Neurologic: Cranial nerves II through XII grossly intact. The patient is awake, alert, and oriented. Skin: Normal skin turgor. No skin rashes. Results Result Diagram: 05/27/1736 05/27/17 0536 Results 24 hrs Laboratory Tests Test 05/27/17 05:36 White Blood Count 7.9 # Red Blood Count 3.76 L Hemoglobin 11.2 L Hematocrit 35.6 L Mean Corpuscular Volume 94.7 Mean Corpuscular Hemoglobin 29.8 Mean Corpuscular Hemoglobin Concent 31.5 L Red Cell Distribution Width 12.3 Platelet Count 257 Mean Platelet Volume 11.9 H Neutrophils % 55.4 Lymphocytes % 34.1 Monocytes % 6.3 Eosinophils % 3.7 Basophils % 0.4 Nucleated Red Blood Cells % 0.0 Neutrophils # 4.4 Lymphocytes # 2.7 Monocytes # 0.5 Eosinophils # 0.3 Basophils # 0.0 Nucleated Red Blood Cells # 0.0 Sodium Level 141 Potassium Level 4.4 Chloride Level 109 Carbon Dioxide Level 26 Anion Gap 10 # Blood Urea Nitrogen 14 Creatinine 0.84 Glucose Level 92 Hemoglobin A1c 5.4 Calcium Level 8.2 L Magnesium Level 2.0 Total Bilirubin 0.1 L Direct Bilirubin 0.00 Indirect Bilirubin 0.1 Aspartate Amino Transf (AST/SGOT) 19 Alanine Aminotransferase (ALT/SGPT) 32 Alkaline Phosphatase 58 Total Protein 6.4 # Albumin 3.5 # Globulin 2.90 Albumin/Globulin Ratio 1.20 Triglycerides Level 74 Cholesterol Level 147 LDL Cholesterol, Calculated 92 HDL Cholesterol 40 Cholesterol/HDL Ratio 3.6 Thyroid Stimulating Hormone (TSH) 2.570 Medications Medications Current Medications Sodium Chloride (NS) 1,000 ml @ 75 mls/hr [id number] IV Last administered on 05/26 20:55; Admin Dose 75 MLS/HR; Start 05/26/17 at 06:19 Ondansetron HCl (Zofran Inj) 4 mg Q6H PRN IV NAUSEA AND/OR VOMITING Last administered on 05/26/17 10:32; Admin Dose 4 MG; Start 05/26/17 at 06:30 Acetaminophen (Tylenol Tab) 650 mg Q6H PRN PO PAIN LEVEL 1-3 OR FEVER Last administered on 05/27/17 08:40; Admin Dose 650 MG; Start 05/26/17 at 06:30 Docusate Sodium (Colace) 100 mg Q12H PRN PO CONSTIPATION Last administered on 08:39; Admin Dose 100 MG; Start 05/26/17 at 06:30 Bisacodyl (Dulcolax Supp) 10 mg DAILY PRN [place] CONSTIPATION; Start 05/26/17 at 06 :30 Pantoprazole 40 mg 40 mg DAILY@06 IV Last administered on 05/27/17 05:54; Admin Dose 40 MG; Start 05/27/17 at 06:00 Piperacillin Sod/ Tazobactam Sod (Zosyn 3.375gm/ 100 ml (Pmx)) 100 ml @ 200 mls /hr Q6 IVPB Last administered on 05/27/17 05:54; Admin Dose 200 MLS/HR; Start 05/26/17 at 06:30 Morphine Sulfate (morphine) 2 mg Q4H PRN IV Pain Last administered on 15:56; Admin Dose 2 MG; Start 05/26/17 at 09:30 Fluoxetine HCl (Prozac) 40 mg DAILY PO Last administered on 05/27/17 08:34; Admin Dose 40 MG; Start 05/27/17 at 09:00 Propranolol HCl (Inderal) 5 mg BID PO Last administered on 05/27/17 08:34; Admin Dose 5 MG; Start 05/26/17 at 21:00 ELLEN BALDWIN NP May 27, 2017 09:57
[2017-05-27 14:00] VITALS: BP 112/56; RESP 18
[2017-05-27] MEDS: morphine 2 MG INJ IV PRN ×2 (14:37→23:25)
--- NOTE | 2017-05-27 14:39 | PN ---
Date/Time of Note Date/Time of Note DATE: 05/27/17 TIME: 14:39 Assessment/Plan Lines/Catheters IV Catheter Type (from Nrsg): Peripheral IV Assessment/Plan Assessment/Plan [facility] Progress Note Date of Service: 05/27/2017 Place of service: [facility] 6 floor Today's Assessment & Plan: Overall stable and doing well. Appears to be improved from yesterday with less pain. No obvious indication for acute appendicitis. No indication for acute surgical intervention. With above assessment, I've recommended the following for today: 1. Continue current management 2. Increase activity 3. Increase incentive spirometry 4. Labs in a.m. 5. May discharge home when medically stable Thank you again for your great care of this very pleasant patient and wonderful family. If there are any questions, please feel free to call me at [phone]. very-pleasant 26-year-old lady with comorbidity of BMI 29.2, presenting with a clinical picture that is not clear for acute appendicitis. Her pain description and location is more diffuse and involves mid upper abdomen which could be from ulcer disease or gastritis. She is less tender in the right lower quadrant than other places and she overall does not present as clear the picture for appendicitis. CT scan also suggests equivocal findings for appendicitis at best. Fluid in the pelvis is present and could also be from gynecologic issues. Overall, I do not have enough indication for acute surgical intervention, but I have reserved time in the operating room tomorrow and if the patient does not improve, we can certainly change our stance and operate on her. In the meantime, she can stay in house and be observed carefully with broad-spectrum antimicrobials and observation. Explained above to the patient (no family present during my discussions with the patient) and answered all questions to the best my ability. Patient appeared to understand and agreed with plans. With above assessment, I've recommended the followin. Keep in-house 2. Okay from my standpoint for patient to eat, but n.p.o. after midnight 3. Labs in a.m. 4. Please keep me appraised as to the patient's clinical condition 5. Possible need for gastroenterology consultation if not improved by tomorrow Thank you very much for having me involved in the care of this very pleasant patient and wonderful family. If you have any questions, please feel free to contact me at [phone]. Nature of presenting problem: Moderate severity Please note that, given the multiple number of diagnoses or management options, the moderate amount and/or complexity of data needed to be reviewed, and moderate to high risk of complications and/or morbidity or mortality, this qualifies as moderate complexity type of decision-making. Disclaimers: 1. Inadvertent spelling and grammatical errors are likely due to electronic health record (EHR)/dictation software use and do not reflect on the quality of delivered patient care. 2. The electronic timestamp recorded on this note does not necessarily reflect the actual date and time of the visit. 3. Portions of this note are created through electronic templates and computer algorithms that may bring in information either from the system or from other physicians and providers that are outside of my control and may not be always accurate. In general (but not always) this happens either in the beginning or at the end of the note. My portions of the gathered data are generally dictated in 1 continuous block of text and entered into one field in the EHR. 4. There may be other unanticipated errors in the note that are outside of my control. I can only attest to the portions of the note that I have created. Updated clinical summary: A very-pleasant 26-year-old lady with comorbidity of BMI 29.2, presenting with a clinical picture that is not clear for acute appendicitis. Comorbidities: 1. BMI 29.2 2. Allergy to sulfa 3. Umbilical hernia 4. Mention of abnormal heart valve in the chart, but no further details available Subjective: No major events or complaints; no major abd pain and under control with medications; no n/v/d; no sob or cp; + flatus; - BM; minimal activity Objective: Vitals: See below I's & O's: See below Exam: GENERAL: On exam, the patient was lying in bed and appeared to be comfortable and in no acute distress. ABDOMEN: Soft, nontender and nondistended. There are no peritoneal signs or guarding. SKIN: Skin appears to be pink and feels warm to touch. NEUROLOGIC: Patient is awake, alert, and follows commands appropriately. Labs: See below Exam/Review of Systems Vital Signs Vitals Vital Signs Date Time Temp Pulse Resp B/P Pulse Ox O2 Delivery O2 Flow Rate FiO2 05/27/17 08:01 97.5 69 18 111/66 97 05/26/17 13:57 Room Air Intake and Output 05/26/17 05/26/17 05/27/17 15:00 23:00 07:00 Intake Total 100 ml 1100 ml 650 ml Balance 100 ml 1100 ml 650 ml Results Result Diagram: 05/27/17 0536 05/27/17 0536 KYLER PHAM M.D. May 27, 2017 14:39
[2017-05-27 20:00] VITALS: BP 123/67; PULSE 69; RESP 18
[2017-05-27] MEDS: POLYETHYLENE GLYCOL 17 GM PACKET PO SCH (20:17)
[2017-05-28 02:00] VITALS: BP 118/69; PULSE 72; RESP 18
[2017-05-28] MEDS: PIPER-TAZO 3.375 GM IV (PMX) 100 ML IVPB SCH ×4 (05:53→23:56)
[2017-05-28] MEDS: PANTOPRAZOLE 40 MG INJ IV SCH (05:53)
[2017-05-28 06:22] LABS: BASOPHILS % 0.3 % (0.0-2.0); EOSINOPHILS # 0.2 10^3/ul (0.0-0.5); EOSINOPHILS % 2.8 % (0.0-7.0); HEMATOCRIT 34.7 % (37.0-47.0); HEMOGLOBIN 11.1 g/dl (12.0-16.0); LYMPHOCYTES # 2.5 10^3/ul (0.8-2.9); MEAN CORPUSCULAR HEMOGLOBIN 30.2 pg (29.0-33.0); MEAN CORPUSCULAR VOLUME 94.6 fl (82.0-101.0); MEAN PLATELET VOLUME 12.1 fl (7.4-10.4); MONOCYTE # 0.5 10^3/ul (0.3-0.9); NEUTROPHIL # 5.4 10^3/ul (1.6-7.5); NEUTROPHILS % 61.8 % (39.0-77.0); PLATELET COUNT 242 10^3/UL (140-415); RED BLOOD COUNT 3.67 10^6/ul (4.20-5.40); RED CELL DISTRIBUTION WIDTH 12.2 % (11.5-14.5); WHITE BLOOD COUNT 8.7 10^3/ul (4.8-10.8)
[2017-05-28 06:52] LABS: ALBUMIN 3.6 g/dl (3.3-4.9); ALBUMIN/GLOBULIN RATIO 1.24; BILIRUBIN,INDIRECT 0.1 mg/dl (0-1.1); BILIRUBIN,TOTAL 0.1 mg/dl (0.2-1.3); CALCIUM 8.4 mg/dl (8.4-10.2); CREATININE 0.89 mg/dl (0.44-1.00); POTASSIUM 4.7 mmol/L (3.5-5.1); TOTAL PROTEIN 6.5 g/dl (6.1-8.1)
[2017-05-28] MEDS: FLUOXETINE 20 MG CAP PO SCH (08:56)
[2017-05-28] MEDS: POLYETHYLENE GLYCOL 17 GM PACKET PO SCH ×2 (08:56→20:45)
[2017-05-28] MEDS: PROPRANOLOL 10 MG TAB PO SCH ×2 (08:56→20:45)
[2017-05-28] MEDS: SOD CHLORIDE 0.9% 1,000 ML IV SCH (08:56)
--- NOTE | 2017-05-28 11:12 | PN ---
Date/Time of Note Date/Time of Note DATE: 05/28/17 TIME: 11:09 Assessment/Plan VTE Prophylaxis VTE Prophylaxis Intervention: ambulation Lines/Catheters IV [facility]ter Type (from [facility]): Peripheral IV Urinary Cath still in place: No Assessment/Plan Chief Complaint/Hosp Course 1. Acute abdominal pain. CT scan of the abdomen and pelvis showing mildly distended appendix measuring 8 mm. Pelvic ultrasound showed moderate pelvic free fluid. Urinalysis showing 3+ leukocyte esterase. The patient initially had leukocytosis. Currently it has been resolved. The patient remains on antibiotics. The patient's CT scan also showed moderate retained stool within the colon. The patient will be continued on stool softeners. The patient being followed by general surgery. Patient currently on a diet. The patient continues to have episodes of abdominal pain that requires analgesics. Will obtain a gastroenterology consult. 2. Reported abnormal heart valve. The patient follows up with Dr. Pearce as outpatient. The patient will be continued on propranolol. 3. Fluids, electrolytes, and nutrition. Currently on a regular diet. 4. DVT prophylaxis. Ambulation. 5. Plan. Continue in house monitoring. Obtain gastroenterology consult. Case discussed with Dr. Avendaño. Problems: Subjective 24 Hr Interval Summary Free Text/Dictation The patient continues to have episodic abdominal pain and nausea. Exam/Review of Systems Vital Signs Vitals Vital Signs Date Time Temp Pulse Resp B/P Pulse Ox O2 Delivery O2 Flow Rate FiO2 05/28/17 02:00 98.0 72 18 118/69 98 Room Air Intake and Output 05/27/17 05/27/17 05/28/17 15:00 23:00 07:00 Intake Total 650 ml 350 ml 1210 ml Balance 650 ml 350 ml 1210 ml Exam General: Adequately build 26 year-old female lying in bed in no apparent distress. HEENT: Normocephalic, atraumatic. Eyes: Anicteric sclerae, conjunctivae clear. ENT: Nasal septum midline, oral mucosa moist. Neck supple, no JVD noticed. Respiratory: Bilaterally clear breath sounds. No use of accessory muscles of respiration. No adventitious breath sounds. Cardiovascular: S1, S2 heard. No murmurs or gallops. Abdomen: Soft and nondistended. Bowel sounds positive in all 4 quadrants. Umbilical hernia that is reducible. Non-tender. Genitourinary: Deferred. Extremities: No cyanosis, no clubbing, no edema. Peripheral pulses palpable. Neurologic: Cranial nerves II through XII grossly intact. The patient is awake, alert, and oriented. Skin: Normal skin turgor. No skin rashes. Results Result Diagram: 05/28/17 0512 05/28/17 0531 Results 24 hrs Laboratory Tests Test 05/28/17 05:05 05/28/17 05:12 05/28/17 05:31 Phosphorus Level 4.0 Magnesium Level 2.0 White Blood Count 8.7 Red Blood Count 3.67 L Hemoglobin 11.1 L Hematocrit 34.7 L Mean Corpuscular Volume 94.6 Mean Corpuscular Hemoglobin 30.2 Mean Corpuscular Hemoglobin Concent 32.0 Red Cell Distribution Width 12.2 Platelet Count 242 Mean Platelet Volume 12.1 H Neutrophils % 61.8 Lymphocytes % 29.0 Monocytes % 6.0 Eosinophils % 2.8 Basophils % 0.3 Nucleated Red Blood Cells % 0.0 Neutrophils # 5.4 Lymphocytes # 2.5 Monocytes # 0.5 Eosinophils # 0.2 Basophils # 0.0 Nucleated Red Blood Cells # 0.0 Sodium Level 141 Potassium Level 4.7 Chloride Level 109 Carbon Dioxide Level 26 Anion Gap 11 Blood Urea Nitrogen 11 Creatinine 0.89 Glucose Level 97 Calcium Level 8.4 Total Bilirubin 0.1 L Direct Bilirubin 0.00 Indirect Bilirubin 0.1 Aspartate Amino Transf (AST/SGOT) 39 Alanine Aminotransferase (ALT/SGPT) 59 Alkaline Phosphatase 61 Total Protein 6.5 Albumin 3.6 Globulin 2.90 Albumin/Globulin Ratio 1.24 Medications Medications Current Medications Sodium Chloride (NS) 1,000 ml @ 75 mls/hr [id number] IV Last administered on 05/28 08:56; Admin Dose 75 MLS/HR; Start 05/26/17 at 06:19 Ondansetron HCl (Zofran Inj) 4 mg Q6H PRN IV NAUSEA AND/OR VOMITING Last administered on 05/26/17 10:32; Admin Dose 4 MG; Start 05/26/17 at 06:30 Acetaminophen (Tylenol Tab) 650 mg Q6H PRN PO PAIN LEVEL 1-3 OR FEVER Last administered on 05/27/17 08:40; Admin Dose 650 MG; Start 05/26/17 at 06:30 Docusate Sodium (Colace) 100 mg Q12H PRN PO CONSTIPATION Last administered on 08:39; Admin Dose 100 MG; Start 05/26/17 at 06:30 Bisacodyl (Dulcolax Supp) 10 mg DAILY PRN [place] CONSTIPATION; Start 05/26/17 at 06 :30 Pantoprazole 40 mg 40 mg DAILY@06 IV Last administered on 05/28/17 05:53; Admin Dose 40 MG; Start 05/27/17 at 06:00 Piperacillin Sod/ Tazobactam Sod (Zosyn 3.375gm/ 100 ml (Pmx)) 100 ml @ 200 mls /hr Q6 IVPB Last administered on 05/28/17 05:53; Admin Dose 200 MLS/HR; Start 05/26/17 at 06:30 Morphine Sulfate (morphine) 2 mg Q4H PRN IV Pain Last administered on 23:25; Admin Dose 2 MG; Start 05/26/17 at 09:30 Fluoxetine HCl (Prozac) 40 mg DAILY PO Last administered on 05/28/17 08:56; Admin Dose 40 MG; Start 05/27/17 at 09:00 Propranolol HCl (Inderal) 5 mg BID PO Last administered on 05/28/17 08:56; Admin Dose 5 MG; Start 05/26/17 at 21:00 Polyethylene Glycol (Miralax) 17 gm BID PO Last administered on 05/27/17 20:17 ; Admin Dose 17 GM; Start 05/27/17 at 21:00 ELLEN BALDWIN NP May 28, 2017 11:11
--- NOTE | 2017-05-28 14:09 | PN ---
Date/Time of Note Date/Time of Note DATE: 05/28/17 TIME: 14:07 Assessment/Plan Lines/Catheters IV Catheter Type (from Nrsg): Peripheral IV Yen in Place (from Nrs): No Assessment/Plan Assessment/Plan [facility] Progress Note Date of Service: 05/28/2017 Place of service: [facility] 6 floor Today's Assessment & Plan: Overall stable and doing well. Appears to be improved from yesterday with less pain. No obvious indication for acute appendicitis. No indication for acute surgical intervention. D/w Dr. Shirley (much appreciate his input) and we both agree that at this time, there is no indication for any procedures. In my opinion, the patient can be treated with oral antimicrobials for another few days and if she is doing well tomorrow and her laboratory values and other clinical parameters appear to be doing well, to potentially discharge her home with close follow-up with primary care physician as well as with me or Dr. Shirley as needed. With above assessment, I've recommended the following for today: 1. Continue current management 2. Increase activity 3. Increase incentive spirometry 4. Labs in a.m. 5. Oral conversion with oral antimicrobials 6. Potential discharge home tomorrow with outpatient follow-up Thank you again for your great care of this very pleasant patient and wonderful family. If there are any questions, please feel free to call me at [phone]. very-pleasant 26-year-old lady with comorbidity of BMI 29.2, presenting with a clinical picture that is not clear for acute appendicitis. Her pain description and location is more diffuse and involves mid upper abdomen which could be from ulcer disease or gastritis. She is less tender in the right lower quadrant than other places and she overall does not present as clear the picture for appendicitis. CT scan also suggests equivocal findings for appendicitis at best. Fluid in the pelvis is present and could also be from gynecologic issues. Overall, I do not have enough indication for acute surgical intervention, but I have reserved time in the operating room tomorrow and if the patient does not improve, we can certainly change our stance and operate on her. In the meantime, she can stay in house and be observed carefully with broad-spectrum antimicrobials and observation. Explained above to the patient (no family present during my discussions with the patient) and answered all questions to the best my ability. Patient appeared to understand and agreed with plans. With above assessment, I've recommended the followin. Keep in-house 2. Okay from my standpoint for patient to eat, but n.p.o. after midnight 3. Labs in a.m. 4. Please keep me appraised as to the patient's clinical condition 5. Possible need for gastroenterology consultation if not improved by tomorrow Thank you very much for having me involved in the care of this very pleasant patient and wonderful family. If you have any questions, please feel free to contact me at [phone]. Nature of presenting problem: Moderate severity Please note that, given the multiple number of diagnoses or management options, the moderate amount and/or complexity of data needed to be reviewed, and moderate to high risk of complications and/or morbidity or mortality, this qualifies as moderate complexity type of decision-making. Disclaimers: 1. Inadvertent spelling and grammatical errors are likely due to electronic health record (EHR)/dictation software use and do not reflect on the quality of delivered patient care. 2. The electronic timestamp recorded on this note does not necessarily reflect the actual date and time of the visit. 3. Portions of this note are created through electronic templates and computer algorithms that may bring in information either from the system or from other physicians and providers that are outside of my control and may not be always accurate. In general (but not always) this happens either in the beginning or at the end of the note. My portions of the gathered data are generally dictated in 1 continuous block of text and entered into one field in the EHR. 4. There may be other unanticipated errors in the note that are outside of my control. I can only attest to the portions of the note that I have created. Updated clinical summary: A very-pleasant 26-year-old lady with comorbidity of BMI 29.2, presenting with a clinical picture that is not clear for acute appendicitis. Comorbidities: 1. BMI 29.2 2. Allergy to sulfa 3. Umbilical hernia 4. Mention of abnormal heart valve in the chart, but no further details available Subjective: No major events or complaints; no major abd pain and under control with medications; no n/v/d; no sob or cp; + flatus; + BM; minimal activity; reports feeling 70% better than when she came in. Objective: Vitals: See below I's & O's: See below Exam: GENERAL: On exam, the patient was lying in bed and appeared to be comfortable and in no acute distress. ABDOMEN: Soft, nontender and nondistended. There are no peritoneal signs or guarding. SKIN: Skin appears to be pink and feels warm to touch. NEUROLOGIC: Patient is awake, alert, and follows commands appropriately. Labs: See below Exam/Review of Systems Vital Signs Vitals Vital Signs Date Time Temp Pulse Resp B/P Pulse Ox O2 Delivery O2 Flow Rate FiO2 05/28/17 02:00 98.0 72 18 118/69 98 Room Air Intake and Output 05/27/17 05/27/17 05/28/17 15:00 23:00 07:00 Intake Total 650 ml 350 ml 1210 ml Balance 650 ml 350 ml 1210 ml Results Result Diagram: 05/28/17 0512 05/28/17 0531 KYLER PHAM M.D. May 28, 2017 14:09
--- NOTE | 2017-05-28 14:28 | CONS ---
Date/Time of Note Date/Time of Note DATE: 05/28/17 TIME: 14:23 Assessment/Plan Assessment/Plan Additional Assessment/Plan Assessment: * Abdominal pain * No evidence of acute appendicitis * Viral? * IBS? * Obesity Plan: * Antispasmodics and observe if pain does not improve or worsens consider colonoscopy otherwise patient may be followed as an outpatient Consultation Date/Type/Reason Admit Date/Time Date of Consultation: May 28, 2017 Type of Consultation: GI Reason for Consultation Abdominal pain Hx of Present Illness 26-year-old female hospitalized with complaints of severe lower abdominal pain associated with some nausea, evaluation in the ER disclosed a large appendix and therefore appendicitis was suspected. Surgical consultation was obtained and surgery and has put the patient on antibiotics and observation as the clinical picture was not clear or typical for appendicitis. The patient has developed significant improvement in her symptomatology approximately 70% but she still complains of what she describes as crampy abdominal pain after eating. There is no fever, chills laboratories have normalized, there is no changes in bowel habits the patient did receive MiraLAX and had loose bowel movements with word not significantly abnormal, no overt gastrointestinal bleeding has been reported. Constitutional: improved, no complaints Eyes: no complaints ENT: no complaints Respiratory: no complaints Cardiovascular: no complaints Gastrointestinal: other (See HPI) Genitourinary: no complaints Musculoskeletal: no complaints Skin: no complaints Neurologic: no complaints Endocrine: no complaints Lymphatic: no complaints Psychological: nl mood/affect, no complaints Immunologic: no complaints Past Medical History Medical History: no pertinent history Past Surgical History Past Surgical Hx: no surgical history Family History Significant Family History: no pertinent family hx Social History Alcohol Use: none Smoking Status: Never smoker Drug Use: none Exam/Review of Systems Vital Signs Vitals Vital Signs Date Time Temp Pulse Resp B/P Pulse Ox O2 Delivery O2 Flow Rate FiO2 05/28/17 02:00 98.0 72 18 118/69 98 Room Air Intake and Output 05/27/17 05/27/17 05/28/17 15:00 23:00 07:00 Intake Total 650 ml 350 ml 1210 ml Balance 650 ml 350 ml 1210 ml Exam PHYSICAL EXAMINATION: GENERAL: Well developed, well nourished, obese, alert & oriented x 3, in no acute distress SKIN: No lesions, no stigmata chronic liver disease, no evidence of bleeding diathesis LYMPHATIC: No palpable lymphadenopathy. HEAD: Normocephalic, atraumatic, no tenderness. EYES: Pupils equal reactive to light and accommodation, full extraocular movements, sclera clear, non-icteric, no discharge. EARS/NOSE AND THROAT: Ears normal, nose normal, oropharynx normal, oral membranes well hydrated without lesions. NECK: Supple, no masses, thyroid normal, JVP within normal limits, carotids normal without bruits. CHEST: Inspection within normal limits, breasts grossly normal. CARDIOVASCULAR: Heart: Regular rate and rhythm, no murmurs, gallops or rubs. Peripheral pulses present within normal limits, no cyanosis, clubbing or edemas. No pulsatile abdominal mass RESPIRATORY: Lungs clear to auscultation and percussion, no wheezing, no rubs GASTROINTESTINAL AND LIVER: Abdomen: Soft, mild lower abdominal tenderness, non- distended, no hernias, no masses, no organomegaly, no ascites, no guarding, no rebound tenderness, normoactive bowel sounds. Rectal: Deferred. GENITOURINARY: [Female genitalia within normal limits.] MUSCULO-SKELETAL: Gait and station within normal limits, range of motion adequate. [NEUROLOGIC: Cranial nerves II-XII intact, Motor within normal limits, Sensory within normal limits. Reflexes within normal limits. PSYCHIATRIC: Alert & oriented x 3, mood/affect/judgement adequate] Results Result Diagram: 05/28/17 0512 05/28/17 0531 Results 24 hrs Laboratory Tests Test 05/28/17 05:05 05/28/17 05:12 05/28/17 05:31 Phosphorus Level 4.0 Magnesium Level 2.0 White Blood Count 8.7 Red Blood Count 3.67 L Hemoglobin 11.1 L Hematocrit 34.7 L Mean Corpuscular Volume 94.6 Mean Corpuscular Hemoglobin 30.2 Mean Corpuscular Hemoglobin Concent 32.0 Red Cell Distribution Width 12.2 Platelet Count 242 Mean Platelet Volume 12.1 H Neutrophils % 61.8 Lymphocytes % 29.0 Monocytes % 6.0 Eosinophils % 2.8 Basophils % 0.3 Nucleated Red Blood Cells % 0.0 Neutrophils # 5.4 Lymphocytes # 2.5 Monocytes # 0.5 Eosinophils # 0.2 Basophils # 0.0 Nucleated Red Blood Cells # 0.0 Sodium Level 141 Potassium Level 4.7 Chloride Level 109 Carbon Dioxide Level 26 Anion Gap 11 Blood Urea Nitrogen 11 Creatinine 0.89 Glucose Level 97 Calcium Level 8.4 Total Bilirubin 0.1 L Direct Bilirubin 0.00 Indirect Bilirubin 0.1 Aspartate Amino Transf (AST/SGOT) 39 Alanine Aminotransferase (ALT/SGPT) 59 Alkaline Phosphatase 61 Total Protein 6.5 Albumin 3.6 Globulin 2.90 Albumin/Globulin Ratio 1.24 Medications Medications Current Medications Ondansetron HCl (Zofran Inj) 4 mg Q6H PRN IV NAUSEA AND/OR VOMITING Last administered on 05/26/17 10:32; Admin Dose 4 MG; Start 05/26/17 at 06:30 Acetaminophen (Tylenol Tab) 650 mg Q6H PRN PO PAIN LEVEL 1-3 OR FEVER Last administered on 05/27/17 08:40; Admin Dose 650 MG; Start 05/26/17 at 06:30 Docusate Sodium (Colace) 100 mg Q12H PRN PO CONSTIPATION Last administered on 08:39; Admin Dose 100 MG; Start 05/26/17 at 06:30 Bisacodyl (Dulcolax Supp) 10 mg DAILY PRN [place] CONSTIPATION; Start 05/26/17 at 06 :30 Pantoprazole 40 mg 40 mg DAILY@06 IV Last administered on 05/28/17 05:53; Admin Dose 40 MG; Start 05/27/17 at 06:00 Piperacillin Sod/ Tazobactam Sod (Zosyn 3.375gm/ 100 ml (Pmx)) 100 ml @ 200 mls /hr Q6 IVPB Last administered on 05/28/17 12:43; Admin Dose 200 MLS/HR; Start 05/26/17 at 06:30 Morphine Sulfate (morphine) 2 mg Q4H PRN IV Pain Last administered on 23:25; Admin Dose 2 MG; Start 05/26/17 at 09:30 Fluoxetine HCl (Prozac) 40 mg DAILY PO Last administered on 05/28/17 08:56; Admin Dose 40 MG; Start 05/27/17 at 09:00 Propranolol HCl (Inderal) 5 mg BID PO Last administered on 05/28/17 08:56; Admin Dose 5 MG; Start 05/26/17 at 21:00 Polyethylene Glycol (Miralax) 17 gm BID PO Last administered on 05/27/17 20:17 ; Admin Dose 17 GM; Start 05/27/17 at 21:00 PARTHA CHOW MD May 28, 2017 14:28
[2017-05-28 14:41] VITALS: BP 109/63; RESP 18
[2017-05-28 20:00] VITALS: BP 110/58; RESP 18
[2017-05-28 23:04] LABS: ADD UMIC NO; UR ASCORBIC ACID NEGATIVE (NEGATIVE); UR BILIRUBIN (Dip) NEGATIVE (NEGATIVE); UR BLOOD (Dip) NEGATIVE (NEGATIVE); UR CLARITY CLEAR (CLEAR); UR COLOR YELLOW (YELLOW); UR GLUCOSE (Dip) NEGATIVE (NEGATIVE); UR KETONES (Dip) NEGATIVE (NEGATIVE); UR LEUKOCYTE ESTERASE (Dip) NEGATIVE Leu/ul (NEGATIVE); UR NITRITE (Dip) NEGATIVE (NEGATIVE); UR SPECIFIC GRAVITY (Dip) 1.016 (1.003-1.030); UR TOTAL PROTEIN (Dip) NEGATIVE (NEGATIVE); UR UROBILINOGEN (Dip) 1+ mg/dL (NEGATIVE)
[2017-05-29 02:00] VITALS: BP 106/55; RESP 18
[2017-05-29] MEDS: PANTOPRAZOLE 40 MG INJ IV SCH (05:48)
[2017-05-29] MEDS: PIPER-TAZO 3.375 GM IV (PMX) 100 ML IVPB SCH ×2 (05:48→12:18)
[2017-05-29 05:56] LABS: BASOPHILS % 0.2 % (0.0-2.0); EOSINOPHILS # 0.2 10^3/ul (0.0-0.5); EOSINOPHILS % 2.2 % (0.0-7.0); HEMATOCRIT 35.5 % (37.0-47.0); HEMOGLOBIN 11.6 g/dl (12.0-16.0); LYMPHOCYTES # 2.2 10^3/ul (0.8-2.9); LYMPHOCYTES % 27.3 % (15.0-51.0); MEAN CORPUSCULAR HEMOGLOBIN 30.5 pg (29.0-33.0); MEAN CORPUSCULAR HGB CONC 32.7 g/dl (32.0-37.0); MEAN CORPUSCULAR VOLUME 93.4 fl (82.0-101.0); MEAN PLATELET VOLUME 12.2 fl (7.4-10.4); MONOCYTE # 0.5 10^3/ul (0.3-0.9); MONOCYTES % 5.8 % (0.0-11.0); NEUTROPHIL # 5.2 10^3/ul (1.6-7.5); NEUTROPHILS % 64.1 % (39.0-77.0); PLATELET COUNT 260 10^3/UL (140-415); WHITE BLOOD COUNT 8.1 10^3/ul (4.8-10.8)
[2017-05-29 06:16] LABS: MAGNESIUM 1.9 mg/dl (1.7-2.5); PHOSPHORUS 3.8 mg/dl (2.5-4.9)
[2017-05-29 06:33] LABS: ALBUMIN 3.6 g/dl (3.3-4.9); ALBUMIN/GLOBULIN RATIO 1.05; BILIRUBIN,INDIRECT 0.1 mg/dl (0-1.1); BILIRUBIN,TOTAL 0.1 mg/dl (0.2-1.3); CALCIUM 9.1 mg/dl (8.4-10.2); CREATININE 0.87 mg/dl (0.44-1.00); POTASSIUM 4.4 mmol/L (3.5-5.1)
[2017-05-29 07:34] VITALS: BP 100/59; RESP 18
[2017-05-29] MEDS: POLYETHYLENE GLYCOL 17 GM PACKET PO SCH (08:13)
[2017-05-29] MEDS: FLUOXETINE 20 MG CAP PO SCH (08:15)
[2017-05-29] MEDS: PROPRANOLOL 10 MG TAB PO SCH (08:16)
[2017-05-29] MEDS ORDERED: AMOX1TAB10 PO (09:59)
--- NOTE | 2017-05-29 10:13 | PDOCDIS ---
Discharge Instructions DIAGNOSIS Discharge Diagnosis 1. Acute abdominal pain. 2. Reported abnormal heart valve. 3. suspect uti CONDITION Patient Condition: Stable HOME CARE INSTRUCTIONS: Diet Instructions: Low Fat /Cholesterol FOLLOW UP/APPOINTMENTS Follow-up Plan 1. Follow up with your primary care provider in one week 2. Follow up with Dr. Trinidad Shirley if you have worsening abdominal pain SOLANGE NICOLE May 29, 2017 10:13
--- NOTE | 2017-05-29 14:51 | PN ---
Date/Time of Note Date/Time of Note DATE: 05/29/17 TIME: 14:48 Assessment/Plan Lines/Catheters IV Catheter Type (from Nrsg): Saline Lock Yen in Place (from Nrsg): No Assessment/Plan Assessment/Plan [facility] Progress Note Date of Service: 05/29/2017 Place of service: [facility] 6 floor Today's Assessment & Plan: Overall stable and doing well. Appears to continue to be improved from yesterday with less pain. No obvious indication for acute appendicitis. No indication for acute surgical intervention. ? constipation in addition for viral flu (8 BM's yesterday and feels well today). Ok to d/c from my standpoint. With above assessment, I've recommended the following for today: 1. D/c home 2. F/u with PCP 3. F/u with us prn Thank you very much for having me involved in the care of this very pleasant patient and wonderful family. If you have any questions, please feel free to contact me at [phone]. Nature of presenting problem: Moderate severity Please note that, given the multiple number of diagnoses or management options, the moderate amount and/or complexity of data needed to be reviewed, and moderate to high risk of complications and/or morbidity or mortality, this qualifies as moderate complexity type of decision-making. Disclaimers: 1. Inadvertent spelling and grammatical errors are likely due to electronic health record (EHR)/dictation software use and do not reflect on the quality of delivered patient care. 2. The electronic timestamp recorded on this note does not necessarily reflect the actual date and time of the visit. 3. Portions of this note are created through electronic templates and computer algorithms that may bring in information either from the system or from other physicians and providers that are outside of my control and may not be always accurate. In general (but not always) this happens either in the beginning or at the end of the note. My portions of the gathered data are generally dictated in 1 continuous block of text and entered into one field in the EHR. 4. There may be other unanticipated errors in the note that are outside of my control. I can only attest to the portions of the note that I have created. Updated clinical summary: A very-pleasant 26-year-old lady with comorbidity of BMI 29.2, presenting with a clinical picture that is not clear for acute appendicitis. Comorbidities: 1. BMI 29.2 2. Allergy to sulfa 3. Umbilical hernia 4. Mention of abnormal heart valve in the chart, but no further details available Subjective: No major events or complaints; no major abd pain and under control with medications; no n/v/d; no sob or cp; + flatus; +++ BM; + activity Objective: Vitals: See below I's & O's: See below Exam: GENERAL: On exam, the patient was lying in bed and appeared to be comfortable and in no acute distress. ABDOMEN: Soft, nontender and nondistended. There are no peritoneal signs or guarding. SKIN: Skin appears to be pink and feels warm to touch. NEUROLOGIC: Patient is awake, alert, and follows commands appropriately. Labs: See below Exam/Review of Systems Vital Signs Vitals Vital Signs Date Time Temp Pulse Resp B/P Pulse Ox O2 Delivery O2 Flow Rate FiO2 05/29/17 07:34 98.6 62 18 100/59 97 05/28/17 02:00 Room Air Intake and Output 05/28/17 05/28/17 05/29/17 15:00 23:00 07:00 Intake Total 400 ml 1500 ml 1200 ml Output Total 1200 ml Balance 400 ml 1500 ml 0 ml Results Result Diagram: 05/29/17 0451 05/29/17 0451 KYLER PHAM M.D. May 29, 2017 14:51
[2017-05-29 14:57] VITALS: BP 103/64; RESP 18
[2017-05-30] MEDS ORDERED: PANTOPRAZOLE (EC) 40 MG TAB PO SCH (06:00)
== END 2017-05-29 18:15 | disposition home or self-care (01) | DRG 392 ==
LOC: E/R 02:09 → MS2 04:57
PROVIDERS: ADMIT Family Medicine; ATTEND Family Medicine
DX: R10.9 Unspecified abdominal pain (principal); I51.89 Other ill-defined heart diseases; K42.9 Umbilical hernia without obstruction or gangrene; R73.03 Prediabetes; Z88.2 Allergy status to sulfonamides
CPT/HCPCS: 36415; 74176; 76830; 76856; 80053; 80061; 81003; 83036; 83690; 83735; 84100; 84443; 85025; 87086; 96365; 96375; 96376; C9113; J0696; J1885; J2270; J2405; J2543; J7030

== ENCOUNTER 2017-10-15 10:04 | Emergency (ER) | END 2017-10-15 13:30 | disposition home or self-care (01) ==